=== PATIENT | male | born 1980 | race African-American/Black ===

== ENCOUNTER 2016-09-06 06:29 | Emergency (ER) | payer SELFPAY ==
--- NOTE | 2016-09-06 20:25 | ER ---
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 Exam remarkable for acutely intoxicated, cooperative male. No acute distress. Released in police custody. tSephen Neal MD/ modl JOB #: [id number] CC: Stephen Neal MD, Attending Physician Deepak Garibay MD, Family Physician Deepak Garibay MD
== END 2016-09-06 06:40 | disposition home or self-care (01) ==
LOC: ER 06:29
DX: F10.229 Alcohol dependence with intoxication, unspecified (principal)